=== PATIENT | female | born 1970 | race Caucasian/White ===

== ENCOUNTER 2019-10-17 10:41 | Emergency (ER) | payer BC ==
[2019-10-17] MEDS ORDERED: Lidocaine 1% 10 ML MDV INJECT ONE (11:29)
--- NOTE | 2019-10-17 11:36 | EDM.PDOC ---
ED HPI GENERAL MEDICAL PROBLEM - General Chief Complaint: Laceration Stated Complaint: LACERATION Time Seen by Provider: 10/17/19 10:55 Source of Information: Reports: Patient, RN, RN Notes Reviewed - History of Present Illness INITIAL COMMENTS - FREE TEXT/NARRATIVE: Patient in kitchen making sandwiches. A plate broke and a piece of the plate cut her in the left ankle leaving a 5 1/2 cm open area. She has full feeling of her foot and toes, they are warm. She does state some tingling sensation at first but now this is gone. She has no difficulty walking. She states her tetanus is current. 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(s) Left Ankle Pain Score (Numeric/FACES): 3 - Related Data Allergies Allergy/AdvReac Type Severity Reaction Status Date / Time No Known Allergies Allergy Verified 10/17/19 12:12 Home Meds: Home Meds NK [No Known Home Meds] 10/17/19 [History] ED ROS GENERAL - Review of Systems Review Of Systems: See Below Constitutional: Reports: No Symptoms HEENT: Reports: No Symptoms Respiratory: Reports: No Symptoms Cardiovascular: Reports: No Symptoms Endocrine: Reports: No Symptoms GI/Abdominal: Reports: No Symptoms : Reports: No Symptoms Musculoskeletal: Reports: Joint Pain Skin: Reports: Lesions (5 1/2 cm laceration to left ankle) Neurological: Denies: Dizziness, Numbness, Tingling, Gait Disturbance Psychiatric: Reports: No Symptoms Hematologic/Lymphatic: Reports: No Symptoms Immunologic: Reports: No Symptoms Free Text/Narrative/Comment: Patient states recent Tetanus injection ED EXAM, SKIN/RASH Exam: See Below Exam Limited By: No Limitations General Appearance: Alert, WD/WN, No Apparent Distress Neurological: Alert, Oriented, CN II-XII Intact, Normal Cognition, Normal Gait, Normal Reflexes, No Motor/Sensory Deficits Psychiatric: Normal Affect, Normal Mood Skin: Warm, Dry, Normal Color, No Rash, Wound/Incision (5 1/2 cm laceration top of ankle) Location, Skin: Upper Extremity, Left Associated features: Tenderness ED SKIN PROCEDURES - Laceration/Wound Repair Left Ankle Appearance: Subcutaneous, Clean Distal NVT: Neuro & Vascular Intact, No Tendon Injury Anesthetic Type: Local Local Anesthesia - Lidocaine (Xylocaine): 1% Plain Local Anesthetic Volume: 2cc Skin Prep: Chlorhexidine (Hibiciens), Saline, Sterile Drape Saline Irrigation (cc's): 100 Exploration/Debridement/Repair: Wound Explored, In a Bloodless Field, Explored to Base, No Foreign Material Found Closed with: Sutures Lac/Wound length In cm: 5.5 Suture Size: 4-0 # of Sutures: 7 Suture Type: Nylon, Simple Course - Orders/Labs/Meds Meds: Medications Discontinued Medications Generic Name Dose Route Start Last Admin Trade Name Malena PRN Reason Stop Dose Admin Lidocaine HCl 10 ml 10/17/19 11:29 Xylocaine 1% INJECT 10/17/19 11:30 ONETIME ONE Pt gave verbal consent to have laceration repaired. 2cc 1% lidocain injected into and around laceration - patient tolerated procedure without difficulty - Re-Assessments/Exams Free Text/Narrative Re-Assessment/Exam: 10/17/19 16:12 sutures placed after consent to repair laceration was provided. Patient tolerated procedure well. Sensation in tact, good pedal pulses post procedure. Patient denies pain, Antibiotic ointment applied and covered with large telfa bandage. Departure - Departure Time of Disposition: 12:15 Disposition: Home, Self-Care 01 Condition: Good Clinical Impression: Laceration - Discharge Information Instructions: Laceration Care, Adult Referrals: PCP,None [Primary Care Provider] - Forms: ED Department Discharge Care Plan Goals: Have sutures removed in 7 to 10 days. Keep clean and dry. Bandage on x 24 hours. No swimming until healed.
== END 2019-10-17 12:15 | disposition home or self-care (01) ==
LOC: LB.ED 10:41
DX: S91.012A Laceration without foreign body, left ankle, initial encounter (principal); W26.8XXA Contact with other sharp object(s), not elsewhere classified, initial encounter
CPT/HCPCS: 12002; 99282; J2001